=== PATIENT | male | born 1995 | race Two or more races ===

== ENCOUNTER 2020-02-23 12:31 | Emergency (ER) | payer OTHER, SELFPAY ==
[~2020-02-23] VITALS: Ht 177.8 cm; Wt 102.1 kg
[2020-02-23 12:33] VITALS: Ht 177.8 cm; Wt 102.1 kg
[2020-02-23 13:42] VITALS: BP 151/83
== END 2020-02-23 13:42 | disposition home or self-care (01) ==
LOC: ED 12:31
DX: R06.00 Dyspnea, unspecified (principal); G47.00 Insomnia, unspecified; R68.2 Dry mouth, unspecified; R68.83 Chills (without fever); Z20.828 Contact with and (suspected) exposure to other viral communicable diseases
CPT/HCPCS: U0003-CS

== ENCOUNTER 2020-05-14 14:48 | Emergency (ER) | payer OTHER ==
[~2020-05-14] VITALS: Ht 177.8 cm; Wt 99.8 kg
[2020-05-14 14:50] VITALS: Ht 177.8 cm; Wt 99.8 kg
[2020-05-14 16:22] LABS: BASOPHIL % 0.5 % (0-2); PLATELET COUNT 217 x10^3mcL (130-400); RED CELL DISTRIBUTION WIDTH 12.9 % (11.5-14.5)
[2020-05-14 16:32] LABS: CALCIUM 9.1 mg/dL (8.5-10.1); CARBON DIOXIDE 30.5 mmol/L (21-32); CHLORIDE SERUM 100 mmol/L (98-107); GFR1 > 60 mL/min; GLUCOSE SERUM 94 mg/dL (74-106); POTASSIUM SERUM 4.8 mmol/L (3.5-5.1); SODIUM SERUM 138 mmol/L (136-145)
[2020-05-14 16:40] LABS: UA SPECIFIC GRAVITY 1.025 (1.005-1.035); microscopic required? YES; urine erythrocyte NEGATIVE (NEGATIVE)
[2020-05-14 16:45] LABS: ALBUMIN 4.2 g/dL (3.4-5.0); ALKALINE PHOSPHATASE 56 U/L (46-116); ALT/SGPT 27 U/L (16-63); AST/SGOT 20 U/L (15-37); BILIRUBIN TOTAL 0.4 mg/dL (0.20-1.00)
[2020-05-14 17:05] LABS: TOTAL PROTEIN, SERUM 8.5 g/dL (6.4-8.2)
[2020-05-14 17:15] VITALS: BP 154/96
[2020-05-16 08:06] LABS: RAPID PLASMA REAGIN Non Reactive (Non Reactive)
== END 2020-05-14 17:10 | disposition home or self-care (01) ==
LOC: ED 14:48
PROVIDERS: Student in an Organized Health Care Education/Training Program
DX: F41.9 Anxiety disorder, unspecified (principal); R53.1 Weakness; R51.9 Headache, unspecified; K92.0 Hematemesis
CPT/HCPCS: 87491; 87591; Q0092

== ENCOUNTER 2020-07-24 23:04 | Emergency (ER) | payer OTHER ==
[~2020-07-24] VITALS: Ht 177.8 cm; Wt 102.1 kg
[2020-07-25 01:01] VITALS: BP 154/81; Ht 177.8 cm; Wt 102.1 kg
== END 2020-07-25 02:15 | disposition home or self-care (01) ==
LOC: ED 23:04
DX: A49.01 Methicillin susceptible Staphylococcus aureus infection, unspecified site (principal); J45.909 Unspecified asthma, uncomplicated

== ENCOUNTER 2020-09-03 19:45 | Emergency (ER) | payer OTHER ==
[~2020-09-03] VITALS: Ht 177.8 cm; Wt 103.9 kg
[2020-09-03 20:01] VITALS: Ht 177.8 cm; Wt 103.9 kg
[2020-09-03 21:28] VITALS: BP 143/110
== END 2020-09-03 21:28 | disposition home or self-care (01) ==
LOC: ED 19:45
DX: R51.9 Headache, unspecified (principal); R42 Dizziness and giddiness; J45.909 Unspecified asthma, uncomplicated; R20.0 Anesthesia of skin; H53.8 Other visual disturbances